=== PATIENT | male | born 1950 ===

== ENCOUNTER 2020-09-02 11:50 | Emergency (ER) | payer MEDICARE ==
[2020-09-02] MEDS ORDERED: Rabies Vaccine (Avian) 2.5 Unit Inj Kit IM ONE (12:20)
[2020-09-02] MEDS ORDERED: Diphtheria,Pertussis(Acell),Tetanus Vaccine 0.5 ML Syringe IM ONE (12:24)
== END 2020-09-02 13:33 | disposition home or self-care (01) ==
LOC: DL.ED 11:50
DX: S61.451A Open bite of right hand, initial encounter (principal); Z23 Encounter for immunization; W55.01XA Bitten by cat, initial encounter
CPT/HCPCS: 90471; 90472; 90675; 90715; 99283